=== PATIENT | male | born 1935 | race Caucasian/White ===

== ENCOUNTER → 2016-12-21 | Outpatient (CLI) | payer MEDICARE, OTHER ==
[~2016-12-21] MED LIST: CARV3.1260 PO; COU1 PO; DUTA0.5C PO; EPLE25TA4 PO; FURO20TA3 PO; LOSA50TA6 PO; METF-382 PO; OXYC-481 PO; SMV40T PO; TAMS0.4C2 PO
--- NOTE | 2016-12-21 17:37 | RADRPT ---
PROCEDURE: XR Right hip and pelvis. CLINICAL INDICATION: Right hip pain. Pelvic pain. Postop. TECHNIQUE: Three views. Frontal pelvis. Frontal and lateral right hip. COMPARISON: 08/17/2016. FINDINGS: There is no fracture or dislocation. The soft tissues are normal. There is a right hip total arthroplasty which appears satisfactory. There are moderate degenerative changes of the left hip with joint space narrowing and osteophytes. There has been prior lower lumbar spine surgery. There is no lytic or blastic lesion. Vacuum disk phenomenon is present at L4-5. IMPRESSION: 1. Satisfactory postoperative appearance of the right hip. 2. Moderate degenerative changes of the left hip. 3. Prior lower lumbar spine surgery. RPTAT: QQ .Brayan Salcido MD, MD Date Time Electronically viewed and signed by .Brayan Salcido MD, on 12/21/2016 17:36 .R/
== END | disposition home or self-care (01) ==
LOC: HKI 11:08
PROVIDERS: ATTEND Orthopaedic Surgery
DX: Z47.1 Aftercare following joint replacement surgery (principal); Z96.641 Presence of right artificial hip joint; Z85.830 Personal history of malignant neoplasm of bone; Z92.3 Personal history of irradiation
CPT/HCPCS: 73502; G0463